=== PATIENT | male | born 1995 | race American Indian/Alaskan Native ===

== ENCOUNTER 2017-12-10 05:28 | Emergency (ER) | payer SELFPAY ==
[2017-12-10] MEDS ORDERED: TYLENOL ONE (06:34)
[2017-12-10] MEDS ORDERED: TYLENOL PO ONE (06:36)
[2017-12-10] MEDS ORDERED: XYLOCAINE 2% INFILTRATI ONE (07:12)
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
[2017-12-10] MEDS ORDERED: BOOSTRIX IM ONE (08:44)
[2017-12-10 09:32] VITALS: BP 122/76
== END 2017-12-10 09:30 | disposition home or self-care (01) ==
LOC: ED 05:28
DX: S16.1XXA Strain of muscle, fascia and tendon at neck level, initial encounter (principal); S00.03XA Contusion of scalp, initial encounter; S66.919A Strain of unspecified muscle, fascia and tendon at wrist and hand level, unspecified hand, initial encounter; S01.81XA Laceration without foreign body of other part of head, initial encounter; F12.10 Cannabis abuse, uncomplicated; Y04.8XXA Assault by other bodily force, initial encounter; Y93.89 Activity, other specified; Y99.8 Other external cause status; Y92.410 Unspecified street and highway as the place of occurrence of the external cause
CPT/HCPCS: 70450; 72125; 90471; 90715

== ENCOUNTER 2017-12-18 09:45 | Emergency (ER) | payer SELFPAY ==
[2017-12-18 09:59] VITALS: BP 129/66
== END 2017-12-18 11:09 ==
LOC: ED 09:45
DX: Z48.02 Encounter for removal of sutures (principal); Z53.21 Procedure and treatment not carried out due to patient leaving prior to being seen by health care provider

== ENCOUNTER 2019-04-21 11:31 | Emergency (ER) | payer SELFPAY ==
[2019-04-21 13:08] VITALS: BP 122/54
--- NOTE | 2019-04-21 14:29 | Emergency Department Report ---
Chief Complaint: Urogenital-Female Stated Complaint: FEVER/STD CHECKUP Time Seen by Provider: 04/21/19 14:25 - HPI History of Present Illness: This is a 23-year-old male nontoxic, well in appearance with no signs of distress presents to the ED for STD check. Patient stated that he saw some bumps but there is no more now. Patient stated he is asymptotic. Denies any penile discharge, testicular pain, or swelling. Patient denies any urinary symptoms. Patient denies any fever, chills, headache, nausea, vomiting, chest pain or shortness of breathe. denies any other symptoms or complaints. Denies any allergies or PMH. - Exam Vital Signs: Vital Signs 04/21/19 13:06 Temperature 98.4 F Pulse Rate 73 Respiratory 16 Rate Blood Pressure 122/54 O2 Sat by Pulse 99 Oximetry Physical Exam: no penile lesions noted. no rash. no urinary symptms. no symptoms. no discharge. MSE screening note: Focused history and physical exam performed. Due to findings the following was ordered: ED Medical Decision Making - Medical Decision Making This is a 23-year-old male that presents with nonmedical emergency complaint. Patient is just requested for a STD test. Patient denies any symptoms. I gave patient many different referrals to follow-up with STD concerns. Patient was instructed to Follow-up with a primary care doctor in 3-5 days or if symptoms worsen and continue return to emergency room as soon as possible. At time of discharge, the patient does not seem toxic or ill in appearance. No acute signs of distress noted. Patient agrees to discharge treatment plan of care. No further questions noted by the patient. ED Disposition for MSE Clinical Impression: Possible exposure to STD Disposition: Z-07 MED SCREENING EXAM-LEFT Is pt being admited?: No Does the pt Need Aspirin: No Condition: Stable Instructions: Safe Sex (ED) Additional Instructions: Follow-up with a primary care doctor in 3-5 days or if symptoms worsen and continue return to emergency room as soon as possible. Referrals: PRIMARY MD MONIKA [Referring] - 3-5 Days ABNER DOONVAN MD [Staff Physician] - 3-[address] [facility] [Outside] - 3-5 Days
== END 2019-04-21 16:11 | disposition left against medical advice (07) ==
LOC: ED 11:31
DX: Z11.3 Encounter for screening for infections with a predominantly sexual mode of transmission (principal)
CPT/HCPCS: 99281